=== PATIENT | male | born 1960 | race Asian ===

== ENCOUNTER 2018-02-25 11:12 | Emergency (ER) | payer OTHER ==
[~2018-02-25] VITALS: Ht 162.6 cm; Wt 59.1 kg
[2018-02-25] MEDS ORDERED: METF500T6 PO (11:25)
[2018-02-25] MEDS ORDERED: ASPI81 PO (11:25)
[2018-02-25] MEDS ORDERED: CLOP75 PO (11:25)
[2018-02-25] MEDS ORDERED: LISI-661 PO (11:25)
[2018-02-25] MEDS ORDERED: TADA20TA PO (11:25)
[2018-02-25] MEDS ORDERED: METO25 PO (11:25)
[2018-02-25] MEDS ORDERED: ATOR40TA28 PO (11:25)
[2018-02-25 11:27] LABS: GLUCOSE,POINT OF CARE 223 MG/DL (70-110)
[2018-02-25] MEDS ORDERED: ONDANSETRON HCL 4 MG TABLET PO ONE (12:00)
[2018-02-25] MEDS ORDERED: PERTUSS(ACELL),DIPH,TET VAC/PF 0.5 ML VIAL IM ONE (12:00)
[2018-02-25] MEDS ORDERED: HYDROCODONE/ACETAMINOPHEN 5-325 MG TABLET PO ONE (12:00)
[2018-02-25] MEDS ORDERED: BACITRACIN 0.9 GM PACKET OINTMENT TP ONE (12:15)
[2018-02-25 13:11] VITALS: BP 144/81
== END 2018-02-25 13:13 | disposition home or self-care (01) ==
LOC: EMS 11:12
DX: S62.291A Other fracture of first metacarpal bone, right hand, initial encounter for closed fracture (principal); S61.411A Laceration without foreign body of right hand, initial encounter; S40.811A Abrasion of right upper arm, initial encounter; I10 Essential (primary) hypertension; E78.00 Pure hypercholesterolemia, unspecified; E11.9 Type 2 diabetes mellitus without complications; Z91.040 Latex allergy status; W45.8XXA Other foreign body or object entering through skin, initial encounter; Y93.89 Activity, other specified; Y92.89 Other specified places as the place of occurrence of the external cause; Y99.8 Other external cause status
CPT/HCPCS: 29125; 73130; 82962; 90471; 90715; 99284; Q0162

== ENCOUNTER 2024-04-01 14:43 | Emergency (ER) | payer MEDICARE, OTHER ==
[~2024-04-01] VITALS: Ht 162.6 cm; Wt 59.0 kg
[~2024-04-01 14:43] MED LIST: ASPI-1450 PO; ATOR40TA28 PO; CLOP75TA60 PO; LISI-893 PO; METF-1211 PO; METO25 PO; TADA20TA PO
[2024-04-01 15:00] VITALS: BP 152/84; PULSE 77; RESP 18; TEMP 98.2
[2024-04-01] MEDS: FLUORESCEIN SODIUM 1 MG STRIP OU ONE (15:52)
[2024-04-01] MEDS: PROPARACAINE HCL 0.5% 15 ML OPHTHALMIC SOLUTION OD ONE (15:52)
[2024-04-01] MEDS: OFLOXACIN 0.3% 5 ML OPHTHALMIC SOLUTION OS ONE (16:21)
[2024-04-01] MEDS: ERYTHROMYCIN 0.5% 3.5 GM TUBE OPHTHALMIC OINTMENT OS ONE (16:21)
== END 2024-04-01 16:24 | disposition home or self-care (01) ==
LOC: EMS 14:47
DX: H16.002 Unspecified corneal ulcer, left eye (principal); E11.9 Type 2 diabetes mellitus without complications; E78.00 Pure hypercholesterolemia, unspecified; I10 Essential (primary) hypertension; Z98.890 Other specified postprocedural states; Z91.040 Latex allergy status
CPT/HCPCS: 99282; 99283